=== PATIENT | female | born 1965 | race Caucasian/White ===

== ENCOUNTER 2018-03-08 17:28 | Emergency (ER) | payer OTHER ==
[2018-03-08] MEDS: LIDOCAINE 2% VISC 15 ML CUP PO (17:49)
== END 2018-03-08 18:01 | disposition home or self-care (01) ==
LOC: FTE 17:28
DX: J02.9 Acute pharyngitis, unspecified (principal); E11.9 Type 2 diabetes mellitus without complications; E03.9 Hypothyroidism, unspecified; Z79.4 Long term (current) use of insulin
CPT/HCPCS: 99283; Z7502

== ENCOUNTER 2019-07-15 17:55 | Emergency (ER) | payer OTHER ==
[2019-07-15] MEDS: TETRACAINE 0.5% 4 ML OPH RIGHT EYE (20:09)
[2019-07-15] MEDS: FLUORESCEIN STRIP RIGHT EYE (20:09)
== END 2019-07-15 20:52 | disposition home or self-care (01) ==
LOC: FTE 17:55
DX: S05.01XA Injury of conjunctiva and corneal abrasion without foreign body, right eye, initial encounter (principal); E11.9 Type 2 diabetes mellitus without complications; E03.9 Hypothyroidism, unspecified; X58.XXXA Exposure to other specified factors, initial encounter; Y92.9 Unspecified place or not applicable; Z79.4 Long term (current) use of insulin
CPT/HCPCS: 76536; 99284-25